=== PATIENT | female | born 1975 | race African-American/Black ===

== ENCOUNTER 2017-08-07 17:06 | Outpatient (CLI) | payer BC, MEDICAID | END 2017-08-07 17:07 | disposition home or self-care (01) | LOC: BICRAD 17:06 | PROVIDERS: ATTEND Internal Medicine | DX: M54.6 Pain in thoracic spine (principal); R07.81 Pleurodynia; M47.894 Other spondylosis, thoracic region | CPT/HCPCS: 71046; 72072 ==

== ENCOUNTER 2017-08-28 10:19 | Outpatient (CLI) | payer BC | END 2017-08-28 10:20 | disposition home or self-care (01) | LOC: BICRAD 10:19 | PROVIDERS: ATTEND Internal Medicine | DX: M54.5 Low back pain (principal); M47.896 Other spondylosis, lumbar region | CPT/HCPCS: 72100 ==

== ENCOUNTER 2018-04-26 20:30 | Outpatient (CLI) | payer BC | END 2018-04-26 20:31 | disposition home or self-care (01) | LOC: SLEEPLAB 20:30 | PROVIDERS: ATTEND Allergy & Immunology | DX: G47.33 Obstructive sleep apnea (adult) (pediatric) (principal); R06.83 Snoring; K21.9 Gastro-esophageal reflux disease without esophagitis; Z68.42 Body mass index [BMI] 45.0-49.9, adult | CPT/HCPCS: 95810 ==

== ENCOUNTER 2018-05-18 20:30 | Outpatient (CLI) | payer BC | END 2018-05-18 20:31 | disposition home or self-care (01) | LOC: SLEEPLAB 20:30 | PROVIDERS: ATTEND Allergy & Immunology | DX: G47.33 Obstructive sleep apnea (adult) (pediatric) (principal); R06.83 Snoring | CPT/HCPCS: 95811 ==

== ENCOUNTER 2018-07-18 08:33 | Outpatient (CLI) | payer BC ==
--- NOTE | 2018-07-18 11:09 | ULT ---
RIGHT LOWER EXTREMITY VENOUS DOPPLER ULTRASOUND: HISTORY: Lower extremity edema and pain. COMPARISON: None. TECHNIQUE: Real-time [place]-scale color Doppler and spectral analysis of the right lower extremity venous system i s performed. The common femoral, femoral, and proximal portion of the greater saphenous deep femoral veins, as well as the popliteal and posterior tibial veins, were interrogated. FINDINGS: There is normal flow, augmentation, and compression. IMPRESSION: No deep venous thrombosis. POS: [facility]
== END 2018-07-18 08:34 | disposition home or self-care (01) ==
LOC: ULT 08:33
PROVIDERS: ATTEND Internal Medicine
DX: I82.401 Acute embolism and thrombosis of unspecified deep veins of right lower extremity (principal); R22.43 Localized swelling, mass and lump, lower limb, bilateral

== ENCOUNTER 2018-07-29 12:34 | Outpatient (CLI) | payer BC ==
--- NOTE | 2018-07-29 13:23 | RAD ---
RIGHT KNEE FOUR VIEWS: History: Right knee pain. FINDINGS/IMPRESSION: No fracture, dislocation, or bony destruction is identified. No significant osteophytosis is seen. POS: [facility]
--- NOTE | 2018-07-29 13:27 | RAD ---
LEFT KNEE FOUR VIEWS: History: Left knee pain. FINDINGS/IMPRESSION: No fracture, dislocation, or bony destruction is seen. There is coarse calcification in the distal fe mur, likely compatible with enchondroma. POS: [facility]
== END 2018-07-29 12:35 | disposition home or self-care (01) ==
LOC: BICRAD 12:34
PROVIDERS: ATTEND Internal Medicine
DX: M25.561 Pain in right knee (principal); M25.562 Pain in left knee; R23.1 Pallor

== ENCOUNTER 2018-11-12 13:49 | Emergency (ER) | payer BC ==
--- NOTE | 2018-11-12 14:43 | RAD ---
CHEST 2 VIEWS: Date: 11/12/18 HISTORY: Cough, chest pressure. COMPARISON: 08/07/17. FINDINGS: Heart size is normal. The lungs are clear. IMPRESSION: No acute intrathoracic disease. POS: [facility]
[2018-11-12] MEDS ORDERED: Dexamethasone 10 MG/ML VIAL ONE (15:18)
[2018-11-12] MEDS ORDERED: Albuterol Sulfate 2.5 mg/3 ml Neb ONE (16:29)
--- NOTE | 2018-11-15 14:07 | EKG ---
Test Reason : Blood Pressure : / mmHG Vent. Rate : 080 BPM Atrial Rate : 080 BPM P-R Int : 142 ms QRS Dur : 068 ms QT Int : 354 ms P-R-T Axes : 068 049 059 degrees QTc Int : 408 ms Normal sinus rhythm Septal infarct , age undetermined Abnormal ECG Confirmed by YUMIKO GOODMAN ([id number]), material expeditor LA ZUNIGA ([id number]) on 11/15/2018 2:07:37 PM Referred By: Confirmed By:YUMIKO GOODMAN
== END 2018-11-12 17:45 | disposition home or self-care (01) ==
LOC: ERS 13:49
DX: J20.9 Acute bronchitis, unspecified (principal); F41.9 Anxiety disorder, unspecified; Z79.899 Other long term (current) drug therapy
CPT/HCPCS: 71046; 93005; 94644; J1100; J7611; J7620

== ENCOUNTER 2020-08-08 13:59 | Outpatient (CLI) | payer BC, MEDICAID | END 2020-08-08 14:00 | disposition home or self-care (01) | LOC: BICMAMMO 13:59 | PROVIDERS: ATTEND Nurse Practitioner Women's Health | DX: Z12.31 Encounter for screening mammogram for malignant neoplasm of breast (principal); Z80.3 Family history of malignant neoplasm of breast | CPT/HCPCS: 77067 ==